=== PATIENT | male | born 1965 | race Two or more races ===

== ENCOUNTER 2017-08-23 13:30 | Emergency (ER) | payer OTHER ==
[~2017-08-23] VITALS: Wt 73.5 kg
[2017-08-23] MEDS ORDERED: DIPHTH/TET/ACEL PERTUSS (ADULT) 0.5 ML VIAL IM* ONE (16:30)
[2017-08-23] MEDS ORDERED: IBUPROFEN 800 MG TAB PO ONE (16:30)
--- NOTE | 2017-08-23 17:07 | RADRPT ---
PROCEDURE: XR finger CLINICAL INDICATION: Trauma. Hand cut from glass. TECHNIQUE: Three views of the left fourth finger COMPARISON: None available FINDINGS: Left fourth finger soft tissue swelling. No radiopaque foreign body detected. No evidence of acute fracture or dislocation. The visualized joint spaces are within normal limits. IMPRESSION: 1. Left fourth finger soft tissue swelling. 2. No specific evidence to suggest radiopaque foreign body. If there is clinical concern of occult f oreign body, an MR scan may be performed for further analysis. RPTAT: TT Physician James Date Time Electronically viewed and signed by Physician James on 08/23/2017 17:07 JS/
--- NOTE | 2017-08-23 17:25 | ERD ---
ER Documentation Chief Complaint Chief Complaint LEFT RING FINGER LAC HPI This a 51-year-old male who presents the emergency department today complaining of some left finger pain after cutting it on some glass in a car 2 days ago.. States that it will not stop bleeding. States Advil for pain. States that he is not up-to-date on his vaccines. Denies any fevers or chills. ROS All systems reviewed and are negative except as per history of present illness. PMhx/Soc History of Surgery: Yes ("Brain Aneurysm") Hx Neurological Disorder: Yes (Vertigo) Hx Miscellaneous Medical Probl: Yes (DM, BPH) Hx Alcohol Use: No Hx Substance Use: No Hx Tobacco Use: No Smoking Status: Never smoker Physical Exam Vitals Vital Signs Date Time Temp Pulse Resp B/P Pulse Ox O2 Delivery O2 Flow Rate FiO2 08/23/17 13:33 99.1 89 18 141/70 98 Physical Exam Const: NAD Head: Atraumatic Eyes: Normal Conjunctiva ENT: Normal External Ears, Nose and Mouth. Neck: Full range of motion..~ No meningismus. Resp: Clear to auscultation bilaterally Cardio: Regular rate and rhythm, no murmurs Abd: Soft, non tender, non distended. Normal bowel sounds Skin: 0.25 cm laceration dorsal aspect left 4th finger at the PIP joint . FUll active range of motion. Bleeding controlled. Back: No midline or flank tenderness Ext: 25 cm laceration dorsal aspect left fourth finger PIP joint. Full active range of motion. Cap refill. Pulses 2+. Neur: Awake and alert Psych: Normal Mood and Affect Results 24 hrs Current Medications Medications (Trade) Dose Ordered Sig/Alex Route PRN Reason Start Time Stop Time Status Last Admin Dose Admin Ibuprofen (Motrin) 800 mg ONCE ONCE PO 08/23/17 16:30 08/23/17 16:31 DC 08/23/17 16:28 Diphtheria/ Tetanus/Acell Pertussis (Adacel) 0.5 ml ONCE ONCE IM* 08/23/17 16:30 08/23/17 16:31 DC 08/23/17 16:28 DIAGNOSTIC IMAGING REPORT Patient: SHELDON SHANKS : 1965 Age: 51 Sex: M MR #: [id number] DOS: 08/23/17 0000 Ordering MD: TIMOTHY HO PA-C Location: [facility] Room/Bed: PROCEDURE: XR finger CLINICAL INDICATION: Trauma. Hand cut from glass. TECHNIQUE: Three views of the left fourth finger COMPARISON: None available FINDINGS: Left fourth finger soft tissue swelling. No radiopaque foreign body detected. No evidence of acute fracture or dislocation. The visualized joint spaces are within normal limits. IMPRESSION: 1. Left fourth finger soft tissue swelling. 2. No specific evidence to suggest radiopaque foreign body. If there is clinical concern of occult foreign body, an MR scan may be performed for further analysis. RPTAT: TT Physician James Date Time Electronically viewed and signed by Whitney Cline Physician on 2016 17:07 JS/ CC: TIMOTHY HO PA-C Procedures/MDM This 50-year-old male who presents emergency department today for laceration that he sustained on his hand 2 days ago from glass. Patient was complaining of pain. He does have full active range of motion the area of laceration is very small. Given that his been a couple of days a do not feel that the patient would benefit from sutures at this time especially given the small size of the area. I do feel that patient may have the area closed with Steri-Strips and placed in a splint so that he does not move his finger as it is at his PIP joint. I did obtain images given that the patient indicated he cut himself with glass. Patient's tetanus was updated here in the emergency department. The wound was cleaned in the usual sterile fashion. Per the radiology report images show a left fourth finger soft tissue swelling. There is no specific evidence to suggest radiopaque foreign body. Symptoms at this time is consistent with laceration. I have low suspicion for sepsis, deep space tracking infection, cellulitis, tenosynovitis, acute fracture dislocation. He is afebrile and otherwise well-appearing. He is distally neurovascularly intact pre-and post splint application. . Instructed to return in 48 hours for wound check. Notified by nursing staff that they think patient left without receiving his discharge paperwork or further management. He did not Place Steri-Strips on the patient he did however receive his splint. Departure Diagnosis: Primary Impression: Laceration Additional Impression: Finger pain, left Condition: TIMOTHY Lora PA-C Aug 23, 2017 17:25
== END 2017-08-23 18:00 | disposition home or self-care (01) ==
LOC: FTE 13:30
DX: S61.215A Laceration without foreign body of left ring finger without damage to nail, initial encounter (principal); E11.9 Type 2 diabetes mellitus without complications; W25.XXXA Contact with sharp glass, initial encounter; Y92.9 Unspecified place or not applicable; Z23 Encounter for immunization
CPT/HCPCS: 29130; 73140; 90471; 90715; Z7502; Z7610